=== PATIENT | male | born 1950 | race Caucasian/White ===

== ENCOUNTER 2023-03-05 11:54 | Emergency (ER) | payer MEDICARE, OTHER ==
[2023-03-05 12:38] LABS: #Basophils 0.1 thou/uL (0.0-0.2); #Lymphocytes 1.1 thou/uL (1.20-3.40); #Neutrophils 16.7 thou/uL (1.40-6.50); %Basophils 0.4 % (0.0-1.0); %Lymphocytes 5.8 % (21.0-51.0); %Monocytes 5.4 % (0.0-10.0); %Neutrophils 88.4 % (42.0-75.0); Hematocrit 50.1 % (42.0-52.0); Hemoglobin 16.3 g/dL (14.0-18.0); Mean Corpuscular HGB CONC 32.5 g/dL (32.0-36.0); Mean Corpuscular Volume 89.4 fl (78.0-98.0); Mean Platelet Volume 9.8 fL (7.4-10.4); Platelet Count 231 10x3/uL (130-400); RBC Distribution Width 14.5 % (11.5-14.5); Red Blood Cell (RBC) Count 5.61 mill/uL (4.70-6.10); White Blood Cell (WBC) Count 18.9 10x3/uL (4.8-10.8)
[2023-03-05] MEDS ORDERED: Morphine 4 MG/ML VIAL ONE ×2 (12:52→13:52)
[2023-03-05] MEDS ORDERED: Ondansetron PF 4 MG/2 ML Vial ONE (12:52)
[2023-03-05] MEDS ORDERED: Sodium Chloride 0.9% 500 ML ONE (12:52)
[2023-03-05 12:59] LABS: ALT (SGPT) 37 U/L (8-55); AST (SGOT) 35 U/L (5-34); Albumin 4.1 g/dL (3.4-4.8); Alkaline Phosphatase 67 U/L (40-110); Anion Gap 16 mmol/L (10-20); BUN (Urea Nitrogen) 17 mg/dL (8.4-25.7); Calc. Creatinine Clearance 0 mL/min (70-130); Calcium 9.5 mg/dL (7.8-10.44); Carbon Dioxide 29 mmol/L (23-31); Chloride 98 mmol/L (98-107); Estimated GFR 87; Globulin 3.6 g/dL (2.4-3.5); Glucose 139 mg/dL (83-110); Lipase 22 U/L (8-78); Potassium 3.2 mmol/L (3.5-5.1); Protein, Total 7.7 g/dL (5.8-8.1); Sodium 140 mmol/L (136-145)
[2023-03-05 13:13] LABS: Bilirubin Negative (Negative); Blood, Urine Moderate (Negative); Clarity Clear (Clear); Glucose, Urine (Dipstick) Negative (Negative); Ketone, Urine 15 mg/dL (Negative); Leukocyte Negative (Negative); Nitrite Negative (Negative); Protein, Urine (Dipstick) > or equal to 300 mg/dL (Neg-Trace); Specific Gravity, Urine 1.025 (1.005-1.030); pH, Urine 6.5 (5.0-9.0)
[2023-03-05 13:15] LABS: Magnesium 1.6 mg/dL (1.6-2.6)
[2023-03-05 13:21] LABS: Bacteria/HPF Rare-Few HPF (None Seen); CAUTI Indications for Culture Dysuria,urgency,freq; Squamous Epithelial 0-3 HPF (0-3); Urine Culture Reflex No No; WBC/HPF 0-3 HPF (0-3)
[2023-03-05 13:22] LABS: Troponin I 0.039 ng/mL (< 0.028)
[2023-03-05] MEDS ORDERED: Potassium Chloride 20 MEQ/100 ML PREMIX BAG ONE (13:52)
[2023-03-05] MEDS ORDERED: Iopamidol 370 76% 100 ML VIAL ONE (15:06)
[2023-03-05] MEDS ORDERED: Sodium Chloride 0.9% 100 ML ONE (15:19)
[2023-03-05] MEDS ORDERED: Ketorolac Tromethamine 30 MG/ML VIAL ONE (15:19)
[2023-03-05] MEDS ORDERED: Piperacillin/Tazobactam 3.375 GM VIAL ONE (15:19)
== END 2023-03-05 17:00 | disposition short-term general hospital (02) ==
LOC: MADERS 11:54
DX: K81.0 Acute cholecystitis (principal); E87.6 Hypokalemia; I11.0 Hypertensive heart disease with heart failure; I50.9 Heart failure, unspecified; E78.00 Pure hypercholesterolemia, unspecified; Z79.82 Long term (current) use of aspirin; Z79.899 Other long term (current) drug therapy
CPT/HCPCS: 36415; 74177; 80053; 81001; 83690; 83735; 84484; 85025; 93005; 96365; 96367; 96375; 96376; J1885; J2270; J2405; J2543; J3480; J3490; J7030; Q9967

== ENCOUNTER 2023-03-21 22:16 | Emergency (ER) | payer MEDICARE, OTHER ==
[2023-03-21] MEDS ORDERED: predniSONE 20 MG TAB ONE (22:53)
[2023-03-21] MEDS ORDERED: Acyclovir 200 mg Capsule ONE (22:58)
== END 2023-03-21 23:04 | disposition home or self-care (01) ==
LOC: MADERS 22:16
DX: B02.9 Zoster without complications (principal); I11.0 Hypertensive heart disease with heart failure; I50.9 Heart failure, unspecified; E78.00 Pure hypercholesterolemia, unspecified
CPT/HCPCS: 99283; J7512